=== PATIENT | female | born 1970 | race African-American/Black ===

== ENCOUNTER 2022-05-14 05:56 | Emergency (ER) | payer MEDICAID ==
[~2022-05-14] VITALS: Ht 170.2 cm; Wt 127.3 kg
[2022-05-14 07:23] VITALS: BP 120/78
[2022-05-14] MEDS ORDERED: ACE3T PO (08:22)
[2022-05-14] MEDS ORDERED: ACETAMINOPHEN/CODEINE#3 (300/30mg) TAB PO ONE (08:30)
[2022-05-14] MEDS ORDERED: ONDANSETRON ODT 4 MG TAB PO ONE (08:30)
== END 2022-05-14 08:48 | disposition home or self-care (01) ==
LOC: ER 05:56
DX: S83.92XA Sprain of unspecified site of left knee, initial encounter (principal); I10 Essential (primary) hypertension; Z79.899 Other long term (current) drug therapy; X58.XXXA Exposure to other specified factors, initial encounter; Y93.89 Activity, other specified; Y92.89 Other specified places as the place of occurrence of the external cause; Y99.8 Other external cause status
CPT/HCPCS: 29505; 73562; 99283; Q0162